=== PATIENT | male | born 1945 | race Caucasian/White ===

== ENCOUNTER 2017-09-17 06:51 | Day surgery (SDC) | payer OTHER ==
[2017-09-14 13:03] VITALS: BP 112/58
[2017-09-14 13:37] LABS: HEMATOCRIT 41.3 % (42-54); MEAN CORPUSCULAR HEMOGLOBIN 29.5 pg (27.0-33.0); MEAN CORPUSCULAR HGB CONC 34.5 g/dL (32.0-36.0); MEAN CORPUSCULAR VOLUME 85.7 fL (79-99); PLATELET COUNT (AUTO) 183 K/uL (130-400); RED BLOOD CELL COUNT(AUTO) 4.81 MIL/uL (4.50-6.20); RED CELL DISTRIBUTION WIDTH 13.7 % (11.0-15.5); WHITE BLOOD COUNT (AUTO) 8.7 K/uL (4.8-10.8)
[2017-09-14 13:42] LABS: APPEARANCE,URINE Turbid (CLEAR); BILIRUBIN,URINE Negative (NEGATIVE); COLOR,URINE Yellow (YELLOW); GLUCOSE, URINE (UA) TRACE mg/dL (NEGATIVE); KETONES,URINE Negative (NEGATIVE); LEUKOCYTE ESTERASE ,URINE Small (NEGATIVE); NITRATE,URINE Negative (NEGATIVE); OCCULT BLOOD,URINE Small (NEGATIVE); PROTEIN,URINE Negative (NEGATIVE); UROBILINOGEN,URINE 0.2 mg/dL (0.2-1.0)
[2017-09-14 13:49] LABS: INR 1.02 (0.85-1.15); PARTIAL THROMBOPLASTIN TIME 26.1 SEC (26.3-35.5); PROTHROMBIN TIME 10.7 SEC (9.6-11.6)
[2017-09-14 13:51] LABS: CREATININE 1.2 mg/dL (0.5-1.5); POTASSIUM 3.9 mmol/L (3.5-5.1)
[2017-09-14 14:00] LABS: BASOPHILS % (MANUAL) 2 % (0-2); EOSINOPHILS % (MANUAL) 3 % (1-6); LYMPHOCYTES % (MANUAL) 13 % (22-44); MAN.DIFF COMMENT-IMPRESSION MANUAL DIFFERENTIAL; MONOCYTES % (MANUAL) 8 % (2-9); PLATELET MORPHOLOGY COMMENT ADEQUATE; REACTIVE LYMPHOCYTES 5 % (0-0); SEGMENTED NEUTROPHILS % 69 % (40-70)
[2017-09-14 14:02] LABS: BACTERIA,URINE Rare /HPF (None Seen); SQUAMOUS EPITHELIAL CELL,UR Rare /HPF (0-2); WBC,URINE 0-1 /HPF (0-1)
[2017-09-14 14:03] LABS: URIC ACID CRYSTALS,URINE Moderate /LPF (None Seen)
[~2017-09-17] VITALS: Ht 175.3 cm; Wt 111.7 kg
[2017-09-17] VITALS (22 sets, daily range): BP systolic 129–167; BP diastolic 57–84
[2017-09-17] MEDS: GENTAMICIN 80 MG/NS 100 ML PB 100 ML IV SCH ×2 (06:00→09:26)
[~2017-09-17 06:51] MED LIST: AMLO5TAB2 PO; CEFTRIAXONE SODIUM 1 GM IVP SCH; ISOS60TA4 PO; LOSA1TAB42 PO; METO-391 PO; OMEP20CA10 PO; PROSTATE PLUS PO; VIT1CAPS5 PO
[2017-09-17] MEDS ORDERED: LACTATED RINGERS 1000ML 1,000 ML IV ONE (07:42)
[2017-09-17] MEDS ORDERED: MIDAZOLAM HCL 1 MG/ML 2ML VIAL ONE (11:12)
[2017-09-17] MEDS ORDERED: PROPOFOL 10 MG/ML 20ML VIAL IV ONE ×2 (11:12→13:55)
[2017-09-17] MEDS ORDERED: FENTANYL CITRATE PF 50 MCG/1 ML 2ML VIAL ONE ×3 (11:12→13:55)
[2017-09-17] MEDS ORDERED: EPHEDRINE SULFATE 50 MG/ML AMPULE ONE (11:47)
[2017-09-17] MEDS ORDERED: MEPERIDINE-PF 25 MG/ML SYG ONE ×2 (15:07→15:19)
[2017-09-17 15:16] LABS: HEMATOCRIT 38.6 % (42-54); MEAN CORPUSCULAR HEMOGLOBIN 29.5 pg (27.0-33.0); MEAN CORPUSCULAR HGB CONC 35.1 g/dL (32.0-36.0); MEAN CORPUSCULAR VOLUME 84.3 fL (79-99); PLATELET COUNT (AUTO) 131 K/uL (130-400); RED BLOOD CELL COUNT(AUTO) 4.58 MIL/uL (4.50-6.20); RED CELL DISTRIBUTION WIDTH 14.3 % (11.0-15.5); WHITE BLOOD COUNT (AUTO) 8.6 K/uL (4.8-10.8)
[2017-09-17 15:27] LABS: CREATININE 1.2 mg/dL (0.5-1.5); POTASSIUM 3.8 mmol/L (3.5-5.1)
[2017-10-19] MEDS ORDERED: [UNRECOGNIZED DRUG - OTHER] PO (11:28)
[2017-10-19] MEDS ORDERED: NAPR-1023 PO (11:28)
[2017-10-19] MEDS ORDERED: BRIN8DRO OP (11:28)
[2017-10-19] MEDS ORDERED: ERGO500014 PO (11:28)
== END 2017-09-17 18:10 | disposition home or self-care (01) ==
LOC: DAH 06:51
PROVIDERS: ATTEND Urology
DX: N40.1 Benign prostatic hyperplasia with lower urinary tract symptoms (principal); N21.0 Calculus in bladder; I10 Essential (primary) hypertension; E11.9 Type 2 diabetes mellitus without complications; E66.9 Obesity, unspecified; Z79.899 Other long term (current) drug therapy; I20.9 Angina pectoris, unspecified; R06.02 Shortness of breath; M19.90 Unspecified osteoarthritis, unspecified site
CPT/HCPCS: 36415 ×2; 52317; 52648; 71045; 80048 ×2; 81001; 85025; 85027; 85610; 85730; 87088; 93005; A4218; A4354; A4358; A4600; C1758; C1769; J0696; J1580; J2175 ×2; J2250; J2704 ×2; J3010 ×3; J3490; J7120 ×2

== ENCOUNTER 2017-10-22 06:45 | Day surgery (SDC) | payer OTHER ==
[2017-10-19 10:51] VITALS: BP 122/67
[2017-10-19 10:54] LABS: BASOPHILS % (AUTO) 1.1 % (0.0-5.0); EOSINOPHILS % (AUTO) 4.2 % (0.0-8.0); HEMATOCRIT 40.1 % (42-54); LYMPHOCYTES % (AUTO) 19.7 % (21.0-51.0); MEAN CORPUSCULAR HEMOGLOBIN 29.1 pg (27.0-33.0); MEAN CORPUSCULAR HGB CONC 33.9 g/dL (32.0-36.0); MEAN CORPUSCULAR VOLUME 85.9 fL (79-99); MONOCYTES % (AUTO) 12.7 % (3.0-13.0); NEUTROPHILS % (AUTO) 62.3 % (40.0-77.0); PLATELET COUNT (AUTO) 146 K/uL (130-400); RED BLOOD CELL COUNT(AUTO) 4.67 MIL/uL (4.50-6.20); WHITE BLOOD COUNT (AUTO) 8.2 K/uL (4.8-10.8)
[2017-10-19 10:55] LABS: APPEARANCE,URINE SL CLOUDY (CLEAR); BILIRUBIN,URINE NEGATIVE (NEGATIVE); COLOR,URINE YELLOW (YELLOW); GLUCOSE, URINE (UA) NEGATIVE (NEGATIVE); KETONES,URINE NEGATIVE (NEGATIVE); LEUKOCYTE ESTERASE ,URINE LARGE (NEGATIVE); NITRATE,URINE NEGATIVE (NEGATIVE); OCCULT BLOOD,URINE LARGE (NEGATIVE); PROTEIN,URINE NEGATIVE (NEGATIVE); UROBILINOGEN,URINE 0.2 mg/dL (0.2-1.0)
[2017-10-19 11:05] LABS: CREATININE 1.1 mg/dL (0.5-1.5); POTASSIUM 4.1 mmol/L (3.5-5.1)
[2017-10-19 11:20] LABS: BACTERIA,URINE Rare /HPF (None Seen); SQUAMOUS EPITHELIAL CELL,UR Rare /HPF (0-2)
[~2017-10-22] VITALS: Ht 175.3 cm; Wt 110.9 kg
[2017-10-22] VITALS (12 sets, daily range): BP systolic 118–136; BP diastolic 49–84
[~2017-10-22 06:45] MED LIST changes: +BRIN8DRO OP; +ERGO500014 PO; +GENTAMICIN 80 MG/NS 100 ML PB 100 ML IV SCH; +NAPR-1023 PO; -VIT1CAPS5 PO; +[UNRECOGNIZED DRUG - OTHER] PO
[2017-10-22] MEDS ORDERED: LACTATED RINGERS 1000ML 1,000 ML IV ONE (08:19)
[2017-10-22] MEDS ORDERED: CEFTRIAXONE SODIUM 1 GM ONE (08:35)
[2017-10-22] MEDS ORDERED: GENTAMICIN SULFATE 80 MG/2 ML VIAL ONE (08:36)
[2017-10-22] MEDS: GENTAMICIN 80 MG/NS 100 ML PB 100 ML IV SCH ×2 (09:00→09:50)
[2017-10-22] MEDS: CEFTRIAXONE SODIUM 1 GM IVP SCH ×2 (09:00→10:00)
[2017-10-22] MEDS ORDERED: NEOSTIGMINE 5MG/5ML SYR IV ONE ×2 (09:37→10:59)
[2017-10-22] MEDS ORDERED: GLYCOPYRROLATE 0.2 MG/ML 5 ML VIAL ONE (09:37)
[2017-10-22] MEDS ORDERED: DEXAMETHASONE SOD PHOSPHATE 10MG/ML 1ML VIAL ONE ×2 (09:37→11:16)
[2017-10-22] MEDS ORDERED: LIDOCAINE PF 2% 5ML ABBOJECT ONE (09:37)
[2017-10-22] MEDS ORDERED: ONDANSETRON HCL 4 MG/2 ML VIAL ONE (09:37)
[2017-10-22] MEDS ORDERED: PROPOFOL 10 MG/ML 20ML VIAL IV ONE (09:38)
[2017-10-22] MEDS ORDERED: MIDAZOLAM HCL 1 MG/ML 2ML VIAL ONE (09:38)
[2017-10-22] MEDS ORDERED: FENTANYL CITRATE PF 50 MCG/1 ML 2ML VIAL ONE ×2 (09:38→10:21)
[2017-10-22] MEDS ORDERED: SUB TO ALBUTEROL 2.5MG/3ML NEBULES PER P&T IH ONE (10:26)
[2017-10-22] MEDS ORDERED: ESMOLOL HCL 10 MG/ML 10 ML VIAL ONE (11:13)
[2017-10-22] MEDS ORDERED: ONDANSETRON HCL MDV 20ML 2 MG/ML VIAL ONE (11:16)
[2017-10-22] MEDS ORDERED: METOCLOPRAMIDE 10 MG/2 ML VIAL ONE (11:17)
[2017-10-22] MEDS ORDERED: MEPERIDINE-PF 25 MG/ML SYG ONE (11:53)
== END 2017-10-22 13:15 | disposition home or self-care (01) ==
LOC: DAH 06:45
PROVIDERS: ATTEND Urology
DX: N21.0 Calculus in bladder (principal); N40.0 Benign prostatic hyperplasia without lower urinary tract symptoms; Z98.890 Other specified postprocedural states; J44.9 Chronic obstructive pulmonary disease, unspecified; I10 Essential (primary) hypertension; E66.9 Obesity, unspecified; Z79.899 Other long term (current) drug therapy
CPT/HCPCS: 36415; 52318; 80048; 81001; 82360; 85025; 87088; 88300; A4218; A4354; A4358; A4600; C1758; J0696 ×2; J1100 ×2; J1580 ×2; J2001; J2175; J2405; J2704; J2710 ×2; J2765; J3010 ×2; J3490 ×2; J7120 ×2; J2250

== ENCOUNTER 2017-11-01 14:48 | Inpatient (IN) | payer OTHER ==
[~2017-11-01] VITALS: Ht 175.3 cm; Wt 112.0 kg
[~2017-11-01 14:48] MED LIST changes: -CEFTRIAXONE SODIUM 1 GM IVP SCH; -GENTAMICIN 80 MG/NS 100 ML PB 100 ML IV SCH
[2017-11-01 16:04] LABS: BASOPHILS % (AUTO) 0.7 % (0.0-5.0); EOSINOPHILS % (AUTO) 0.9 % (0.0-8.0); HEMATOCRIT 39.1 % (42-54); LYMPHOCYTES % (AUTO) 12.3 % (21.0-51.0); MEAN CORPUSCULAR HEMOGLOBIN 29.4 pg (27.0-33.0); MONOCYTES % (AUTO) 11.5 % (3.0-13.0); NEUTROPHILS % (AUTO) 74.6 % (40.0-77.0); NUCLEATED RED BLOOD CELLS 0.1 % (0.0-0.19); PLATELET COUNT (AUTO) 137 K/uL (130-400); RED BLOOD CELL COUNT(AUTO) 4.65 MIL/uL (4.50-6.20); RED CELL DISTRIBUTION WIDTH 13.8 % (11.0-15.5); WHITE BLOOD COUNT (AUTO) 9.9 K/uL (4.8-10.8)
[2017-11-01 16:05] LABS: APPEARANCE,URINE Clear (CLEAR); BILIRUBIN,URINE Negative (NEGATIVE); COLOR,URINE Yellow (YELLOW); GLUCOSE, URINE (UA) Negative (NEGATIVE); KETONES,URINE Negative (NEGATIVE); LEUKOCYTE ESTERASE ,URINE Large (NEGATIVE); NITRATE,URINE Negative (NEGATIVE); OCCULT BLOOD,URINE Moderate (NEGATIVE); PROTEIN,URINE Negative (NEGATIVE); UROBILINOGEN,URINE 0.2 mg/dL (0.2-1.0)
[2017-11-01 16:40] LABS: CREATININE 1.5 mg/dL (0.5-1.5); POTASSIUM 4.3 mmol/L (3.5-5.1)
[2017-11-01] MEDS ORDERED: MORPHINE SULFATE 2 MG/ML 1ML SYG ONE ×2 (17:47→19:17)
[2017-11-01 18:11] LABS: BACTERIA,URINE Few /HPF (None Seen); MUCUS,URINE Rare LPF (None Seen); RBC,URINE 0-1 /HPF (0-1); SQUAMOUS EPITHELIAL CELL,UR Rare /HPF (0-2); URIC ACID CRYSTALS,URINE Few /LPF (None Seen)
[2017-11-01] MEDS ORDERED: MORPHINE SULFATE 2 MG/ML 1ML SYG IVP PRN (19:00)
[2017-11-01] MEDS ORDERED: SODIUM CHLORIDE 0.9% 1000ML 1,000 ML IV SCH (19:00)
[2017-11-01] MEDS ORDERED: ONDANSETRON HCL MDV 20ML 2 MG/ML VIAL IVP PRN (19:00)
[2017-11-01] MEDS ORDERED: CEFTRIAXONE SODIUM 1 GM ONE (19:14)
[2017-11-01] MEDS: CEFTRIAXONE SODIUM 1 GM IVP SCH (19:30)
[2017-11-01 19:45] VITALS: BP 160/82
[2017-11-01] MEDS ORDERED: VIT1CAPS5 PO (22:26)
[2017-11-01] MEDS: MORPHINE SULFATE 4 MG/1ML SYG ONE ×2 (23:04→23:06)
[2017-11-02] VITALS (17 sets, daily range): BP systolic 135–204; BP diastolic 67–98
[2017-11-02] MEDS ORDERED: MORPHINE SULFATE 2 MG/ML 1ML SYG IV PRN (01:45)
[2017-11-02] MEDS ORDERED: HYDRALAZINE HCL 20 MG/ML VIAL IV PRN (01:45)
[2017-11-02] MEDS ORDERED: ACETAMINOPHEN 325 MG TAB PO PRN (01:45)
[2017-11-02] MEDS ORDERED: ONDANSETRON HCL 4 MG/2 ML VIAL IV PRN (01:45)
[2017-11-02] MEDS ORDERED: MORPHINE SULFATE 4 MG/1ML SYG ONE (04:28)
[2017-11-02 05:46] LABS: HEMATOCRIT 39.3 % (42-54); MEAN CORPUSCULAR HEMOGLOBIN 28.8 pg (27.0-33.0); MEAN CORPUSCULAR HGB CONC 34.3 g/dL (32.0-36.0); MEAN CORPUSCULAR VOLUME 83.9 fL (79-99); PLATELET COUNT (AUTO) 129 K/uL (130-400); RED BLOOD CELL COUNT(AUTO) 4.68 MIL/uL (4.50-6.20); RED CELL DISTRIBUTION WIDTH 13.7 % (11.0-15.5); WHITE BLOOD COUNT (AUTO) 8.3 K/uL (4.8-10.8)
[2017-11-02 05:56] LABS: BAND NEUTROPHILS % (MANUAL) 2 % (0-2); CREATININE 1.7 mg/dL (0.5-1.5); LYMPHOCYTES % (MANUAL) 10 % (22-44); MAN.DIFF COMMENT-IMPRESSION MANUAL DIFFERENTIAL; MONOCYTES % (MANUAL) 6 % (2-9); POTASSIUM 4.4 mmol/L (3.5-5.1); SEGMENTED NEUTROPHILS % 82 % (40-70)
[2017-11-02 05:57] LABS: PLATELET MORPHOLOGY COMMENT SLIGHTLY DECREASED
[2017-11-02] MEDS: CEFTRIAXONE SODIUM 1 GM IVP SCH (08:54)
[2017-11-02] MEDS: MORPHINE SULFATE 4 MG/1ML SYG IVP PRN ×5 (10:25→22:25)
[2017-11-02] MEDS: SODIUM CHLORIDE 0.9% 1000ML 1,000 ML IV SCH ×3 (11:23→23:51)
[2017-11-02] MEDS ORDERED: GLYCOPYRROLATE 0.2 MG/ML 5 ML VIAL ONE (20:23)
[2017-11-02] MEDS ORDERED: DEXAMETHASONE SOD PHOSPHATE 10MG/ML 1ML VIAL ONE ×2 (20:23→21:35)
[2017-11-02] MEDS ORDERED: LIDOCAINE PF 2% 5ML ABBOJECT ONE (20:23)
[2017-11-02] MEDS ORDERED: NEOSTIGMINE 5MG/5ML SYR IV ONE ×2 (20:23→21:36)
[2017-11-02] MEDS ORDERED: MIDAZOLAM HCL 1 MG/ML 2ML VIAL ONE (20:24)
[2017-11-02] MEDS ORDERED: FENTANYL CITRATE PF 50 MCG/1 ML 2ML VIAL ONE (20:24)
[2017-11-02] MEDS ORDERED: PROPOFOL 10 MG/ML 20ML VIAL IV ONE (20:24)
[2017-11-02] MEDS ORDERED: ISOVUE-370 50ML VIAL IV ONE (20:51)
[2017-11-02] MEDS ORDERED: METOCLOPRAMIDE 10 MG/2 ML VIAL ONE (21:35)
[2017-11-02] MEDS ORDERED: ROCURONIUM BROMIDE 10MG/1ML 5ML VL ONE (21:35)
[2017-11-02] MEDS ORDERED: ONDANSETRON HCL MDV 20ML 2 MG/ML VIAL ONE (21:35)
[2017-11-02] MEDS ORDERED: SUCCINYLCHOLINE CHLORIDE 20 MG/ML 10 ML VIAL ONE (21:35)
[2017-11-03 04:00] VITALS: BP 120/53
[2017-11-03 07:30] VITALS: BP 119/65
[2017-11-03] MEDS: CEFTRIAXONE SODIUM 1 GM IVP SCH (09:23)
== END 2017-11-03 11:00 | disposition home or self-care (01) | DRG 694 ==
LOC: EDH 14:48 → OBSVTOIN 18:47 → 4AH 18:47
PROVIDERS: ADMIT Family Medicine; ATTEND Family Medicine
PROC: 0TF48ZZ Fragmentation in Left Kidney Pelvis, Via Natural or Artificial Opening Endoscopic (ICD-10-PCS; principal; 2017-11-02 20:50)
PROC: 0TF78ZZ Fragmentation in Left Ureter, Via Natural or Artificial Opening Endoscopic (ICD-10-PCS; 2017-11-02 20:50)
PROC: 0T778DZ Dilation of Left Ureter with Intraluminal Device, Via Natural or Artificial Opening Endoscopic (ICD-10-PCS; 2017-11-02 20:50)
DX: N13.2 Hydronephrosis with renal and ureteral calculous obstruction (principal); N17.0 Acute kidney failure with tubular necrosis; E66.01 Morbid (severe) obesity due to excess calories; I10 Essential (primary) hypertension; N21.0 Calculus in bladder; Z86.010 Personal history of colon polyps; Z87.442 Personal history of urinary calculi; Z68.36 Body mass index [BMI] 36.0-36.9, adult; Z90.79 Acquired absence of other genital organ(s)
CPT/HCPCS: 36415; 74018; 74176; 80048; 81001; 85025; A4218; C1758; C1769; C2617; J0330; J0360; J0696; J1100; J2001; J2250; J2270; J2704; J2710; J2765; J3010; J3490; J7030; J7120; Q9967